=== PATIENT | female | born 1990 | race Caucasian/White ===

== ENCOUNTER 2023-11-12 10:19 | Emergency (ER) | payer MEDICAID, SELFPAY ==
[2023-11-12 10:32] VITALS: BP 154/91; PULSE 90; TEMP 36.8; O2SAT 96; BMI 29.5
[2023-11-12 10:49] LABS: Bilirubin Urine NEGATIVE (NEGATIVE); Blood Urine SMALL (NEGATIVE); Clarity Urine CLEAR (CLEAR); Color Urine LT. YELLOW (YELLOW); Glucose Urine UA NEGATIVE (NEGATIVE); Ketones Urine NEGATIVE (NEGATIVE); Leukocyte Esterase Urine NEGATIVE (NEGATIVE); Nitrite Urine NEGATIVE (NEGATIVE); Protein Urine NEGATIVE (NEG/TRACE); Specific Gravity Urine 1.015 (1.005-1.025); Urobilinogen Urine 0.2 EU/dL (0.2-1.0)
[2023-11-12 10:56] LABS: HCG Qualitative Urine* POSITIVE (NEGATIVE); Internal Control Within Normal Limits
[2023-11-12 11:14] LABS: Bacteria Urine NONE SEEN #/HPF (NONE SEEN); Cast Seen? NONE SEEN #/LPF (NONE SEEN); Crystals Seen? None Seen #/HPF (None Seen); Mucus Urine NONE SEEN (NONE SEEN); RBC Urine 0-2 #/HPF (0-2); Squamous Epithelial Cell Urine RARE #/LPF (NONE/RARE); Urine Culture Indicated NO; WBC Urine 0-2 #/HPF (NONE SEEN)
--- NOTE | 2023-11-12 13:09 | ED_ITS ---
HPI HPI - General Adult General Chief complaint: Urogenital-Female Stated complaint: UTI SYMPTOMS WITH BLEEDING, 6WKS Time Seen by Provider: 11/12/23 11:36 Source: family Mode of arrival: walk-in History of Present Illness HPI narrative: Pt is a 33yo presenting to the ER today with chief complaint of blood is pink- tinged on toilet paper when she wipes herself this morning after urinating. Patient has no vaginal bleeding. Patient is a G6, P4, patient has already had 1 ultrasound of her that shows intrauterine single . Patient is seeing her CREATIVE SERVICES WRITER on Wednesday, 2 days, again for repeat ultrasound. Patient has no vaginal discharge, odors. Patient boyfriend is at bedside. Patient was asked by myself and Winter DASILVA several times and we both have secured that patient has had no vaginal bleeding yesterday or today. No recent trauma, falls, patient is on her second course of antibiotics for UTI. Patient is still taking Macrobid. No other acute complaints at this time. Patient was worried about the color on the tissue paper of reddish/pinkish tent after she wiped herself after urinating. No rectal bleeding, no vaginal bleeding. REVIEW OF SYSTEMS: Unless otherwise stated in this report the patient's positive and negative responses for review of systems for constitutional, eyes, ENT, cardiovascular, respiratory, gastrointestinal, neurological, , mus culoskeletal, and integument systems and related systems to the presenting problem are either stated in the history of present illness or were not pertinent or were negative for the symptoms and/or complaints related to the presenting medical problem vital signs reviewed and patient is not hypoxic. ? General: The patient appears well and in no apparent distress. Patient is resting comfortably on cart. Not toxic, lethargic, or listless. Skin: Warm, dry, no pallor noted. There is no rash noted. Head: Normocephalic, atraumatic Eye: Normal conjunctiva, no drainage, EOMI. PERRL. Ears, Nose, Mouth, and Throat: oral mucosa is moist. Nares patent. Mouth without vesicles. Cardiovascular: Regular Rate and Rhythm, no murmurs, gallops, or rubs Respiratory: Patient is in no distress, no accessory muscle use, lungs are clear to auscultation, no wheezing, rales or rhonchi Back: non-tender, no CVA tenderness bilaterally to percussion. NO CTLS midline or paracervical tenderness to palpation. GI: Soft, no tenderness to palpation, no masses appreciated. No rebound, guarding, or rigidity noted. Musculoskeletal: The patient has full range of motion of all extremities and joints with no difficulty. Patient has no motor, no sensory deficits. Neurological: A&O x4, normal speech, no focal neurological deficits. Psychiatric: Cooperative Musculoskeletal: The patient has full range of motion of all extremities and joints with no difficulty. Patient has no motor, no sensory deficits. Neurological: A&O x4, normal speech, no focal neurological deficits. Psychiatric: Cooperative Related Data Home Medications ?Medication ?Instructions ?Recorded ?Confirmed atenolol 25 mg tablet mg 11/12/23 labetalol 100 mg tablet 100 mg PO DAILY 11/12/23 11/12/23 nitrofurantoin 100 mg PO BID 11/12/23 11/12/23 monohydrate/macrocrystals 100 mg capsule (Macrobid) Allergies Allergy/AdvReac Type Severity Reaction Status Date / Time Penicillins Allergy Intermediate Rash Verified 11/12/23 10:31 Opioid HPI Opioid Management Most Recent Opioid Data: No Data to Display Exam Constitutional Vital Signs, click to edit/add: Last Vital Signs Temp 98.3 F 11/12/23 10:32 Pulse 90 11/12/23 10:32 Resp 18 11/12/23 10:32 BP 154/91 H 11/12/23 10:32 Pulse Ox 96 11/12/23 10:32 Course Vital Signs Vital signs: Vital Signs Temperature 98.3 F 11/12/23 10:32 Pulse Rate 90 11/12/23 10:32 Respiratory Rate 18 11/12/23 10:32 Blood Pressure 154/91 H 11/12/23 10:32 Pulse Oximetry 96 11/12/23 10:32 Temperature 98.3 F 11/12/23 10:32 Pulse Rate 90 11/12/23 10:32 Respiratory Rate 18 11/12/23 10:32 Blood Pressure 154/91 H 11/12/23 10:32 Pulse Oximetry 96 11/12/23 10:32 Medical Decision Making MDM Narrative Medical decision making narrative: Patient's urine shows no acute infection. No acute indication for ultrasound or additional testing. Patient has no pelvic pain or vaginal bleeding. Patient will see her CREATIVE SERVICES WRITER on Wednesday. Patient called her CREATIVE SERVICES WRITER today, office was closed secondary to national malfunction of [employer] and computers. Patient will follow-up with PCP and follow-up with CREATIVE SERVICES WRITER on Wednesday at scheduled ultrasound testing. No questions at discharge. Medical Records Medical records reviewed: Yes I reviewed the patient's medical records Lab Data Lab results reviewed: Yes I reviewed the patient's lab results Labs: Lab Results 11/12/23 Range/Units 10:24 Urine Color Lt. yellow (YELLOW) Urine Clarity Clear (CLEAR) Urine pH 6.0 (5.0-9.0) Ur Specific [place] 1.015 (1.005-1.025) Urine Protein Negative (NEG/TRACE) mg/dL Urine Glucose (UA) Negative (NEGATIVE) mg/dL Urine Ketones Negative (NEGATIVE) mg/dL Urine Occult Blood Small A (NEGATIVE) Urine Nitrite Negative (NEGATIVE) Urine Bilirubin Negative (NEGATIVE) Urine Urobilinogen 0.2 (0.2-1.0) EU/dL Ur Leukocyte Esterase Negative (NEGATIVE) Urine RBC 0-2 (0-2) #/HPF Urine WBC 0-2 A (NONE SEEN) #/HPF Ur Squamous Epith Cells Rare (NONE/RARE) #/LPF Urine Crystals None seen (None Seen) #/HPF Urine Bacteria None seen (NONE SEEN) #/HPF Urine Casts None seen (NONE SEEN) #/LPF Urine Mucus None seen (NONE SEEN) Ur Culture Indicated? No Urine HCG, Qual Positive A (NEGATIVE) Discharge Plan Discharge Stand Alone Forms: Portal Instructions Chief Complaint: Urogenital-Female Clinical Impression: Dysuria Patient Disposition: Home, Self-Care Time of Disposition Decision: 13:09 Condition: Fair Prescriptions / Home Meds: No Action atenolol 25 mg tablet labetalol 100 mg tablet 100 mg PO DAILY nitrofurantoin monohyd/m-cryst [Macrobid] 100 mg capsule 100 mg PO BID Rx Instructions: must administer with a meal/food Print Language: Slovak Instructions: Dysuria (ED) Additional Instructions: Increase fluids See your CREATIVE SERVICES WRITER on Wednesday at scheduled apt Referrals: MIHIR MITTAL [Primary Care Provider] - 1 week Discharge Date/Time: 11/12/23 13:15
== END 2023-11-12 13:15 | disposition home or self-care (01) ==
PROVIDERS: Emergency Provider Emergency Medicine
DX: O26.891 Other specified pregnancy related conditions, first trimester (principal); R30.0 Dysuria; Z3A.01 Less than 8 weeks gestation of pregnancy
CPT/HCPCS: 81001; 84703; 99283

== ENCOUNTER 2025-01-10 10:44 | Emergency (ER) | payer MEDICAID, SELFPAY ==
[2025-01-10] VITALS (11 sets, daily range): BP systolic 136–145; BP diastolic 79–91; PULSE 75–96; TEMP 36.7; O2SAT 98–100; BMI 36.3
--- NOTE | 2025-01-10 11:05 | CT_ITS ---
The [address] [address] Patient Name: LUZ CASAS MRN: [id number] date: 1990 Sex: F Assigned Patient Location: ER Current Patient Location: ER Accession/Order Number: [id number] Exam Date: 01/10/2025 11:32 Report Date: 01/10/2025 11:58 At the request of: FRANCIS DEE MD Procedure: CT head/brain wo con CT BRAIN WITHOUT CONTRAST: CLINICAL HISTORY: Whole body feels numb, recent COVID COMPARISON: None TECHNIQUE: Contiguous axial unenhanced images were obtained through the brain. This CT exam was performed using one or more following dose reduction techniques: Automated exposure control, adjustment of the mA and/or kV according to patient size, or use of iterative reconstruction technique. FINDINGS: The ventricles are normal in size and position. There are no areas of abnormal attenuation. There is no hemorrhage, mass effect or extra-axial collections. There may be borderline low-lying cerebellar tonsils. The imaged paranasal sinuses and mastoid air cells are clear. CT/CT head/brain wo con IMPRESSION: NO ACUTE INTRACRANIAL ABNORMALITY. Impression dictated by: Angella Martin M.D. 01/10/2025 11:58 AM Dictation Location: [place] [address] Electronically authenticated by: [id number] Y Date: 01/10/2025 11:58
--- NOTE | 2025-01-10 11:05 | ECG_ITS ---
[facility] Test Date: 2025-01-10 Pat Name: LUZ CASAS Department: Room: - Gender: Female Tax Agent: : 1990 Requested By: [id number] Order Number: [id number] Reading MD: Von Delvalle Measurements Intervals [place] Rate: 79 P: 45 NM: 172 QRS: 101 QRSD: 86 T: 27 QT: 392 QTc: 427 Interpretive Statements 1100 Sinus rhythm 7100 Abnormal right axis deviation 9130 borderline ECG No previous ECG available for comparison Electronically Signed On 01-10-2025 12:42:27 EDT by Von Delvalle
--- NOTE | 2025-01-10 11:06 | ED.GENADUL1 ---
HPI HPI - General Adult General Chief complaint: Extremity Problem, Nontraumatic Stated complaint: WHOLE BODY NUMBNESS Time Seen by Provider: 01/10/25 10:51 Source: patient Mode of arrival: walk-in History of Present Illness HPI narrative: 34-year-old female presents to the emergency department for her whole body being numb. 6 days ago she was diagnosed with COVID and those symptoms are better now. Her cough is much better. She has been taking 2 Mucinex every 4 hours all throughout the day, not at night, for 6 days. Her face and her arms and her legs are numb. Related Data Home Medications ?Medication ?Instructions ?Recorded ?Confirmed labetalol 100 mg tablet 100 mg PO Q12H 11/12/23 01/10/25 ferrous sulfate 325 mg (65 mg 325 mg PO BID 01/10/25 01/10/25 iron) tablet Allergies Allergy/AdvReac Type Severity Reaction Status Date / Time Penicillins Allergy Intermediate Rash Verified 11/12/23 10:31 Review of Systems ROS Narrative A ten point review of systems is negative except as noted above. PFSH PFSH Social History Little interest or pleasure in doing things: not at all Feeling down, depressed, or hopeless: not at all Exam Narrative Exam Narrative: Nurses note and vital signs reviewed and patient is not hypoxic. General: The patient appears well and in no apparent distress. Patient is resting comfortably on cart. Skin: Warm, dry, no pallor noted. There is no rash noted. Head: Normocephalic, atraumatic Eye: Normal conjunctiva, no drainage Ears, Nose, Mouth, and Throat: oral mucosa is moist. Nares patent. Cardiovascular: Regular Rate and Rhythm Respiratory: Patient is in no distress, no accessory muscle use, lungs are clear to auscultation, no wheezing, rales or rhonchi Back: non-tender GI: Soft and nontender Musculoskeletal: The patient has no evidence of calf tenderness, no pitting edema, symmetrical pulses noted bilaterally Neurological: A&O, normal speech; upper and lower extremity strength 5 out of 5 and symmetric. Psychiatric: Cooperative Constitutional Vital Signs, click to edit/add: Last Vital Signs Temp 98.1 F 01/10/25 10:48 Pulse 85 01/10/25 10:48 Resp 16 01/10/25 10:48 BP 145/84 H 01/10/25 10:48 Pulse Ox 100 01/10/25 10:48 O2 Del Method Room Air 01/10/25 10:48 Course Vital Signs Vital signs: Vital Signs Temperature 98.1 F 01/10/25 10:48 Pulse Rate 85 01/10/25 10:48 Respiratory Rate 16 01/10/25 10:48 Blood Pressure 145/84 H 01/10/25 10:48 Pulse Oximetry 100 01/10/25 10:48 Oxygen Delivery Method Room Air 01/10/25 10:48 Temperature 98.1 F 01/10/25 10:48 Pulse Rate 85 01/10/25 10:48 Respiratory Rate 16 01/10/25 10:48 Blood Pressure 145/84 H 01/10/25 10:48 Pulse Oximetry 100 01/10/25 10:48 Oxygen Delivery Method Room Air 01/10/25 10:48 Medical Decision Making MDM Narrative Medical decision making narrative: Her workup including CT brain is negative. She was given IV fluids as well. Blood work is normal and she is discharged home. I suspect that her symptoms are secondary to the quantity of Mucinex that she has been taking. Treatment diagnosis and follow-up were discussed with the patient and her mother. Differential Diagnosis Differential Diagnosis: Medication side effect, dehydration Lab Data Lab results reviewed: Yes I reviewed the patient's lab results Labs: Lab Results 01/10/25 Range/Units 11:19 WBC 7.9 (4.0-11.0) 10^3/uL RBC 4.10 L (4.20-5.40) 10^6/uL Hgb 11.4 L (12.0-16.0) g/dL Hct 35.1 L (36.0-48.0) % MCV 85.6 (81.0-99.0) fL MCH 27.8 (26.7-34.0) pg MCHC 32.5 (29.9-35.2) g/dL RDW 13.4 (11.0-15.0) % Plt Count 381 (150-450) 10^3/uL MPV 8.8 L (9.5-13.5) fL Neut % (Auto) 70.0 (43.0-75.0) % Lymph % (Auto) 25.4 (20.5-60.0) % [place] % (Auto) 3.2 (1.7-12.0) % Eos % (Auto) 1.0 (0.9-7.0) % Baso % (Auto) 0.1 L (0.2-2.0) % Neut # (Auto) 5.6 (1.4-6.5) 10^3/uL Lymph # (Auto) 2.0 (1.2-3.8) 10^3/uL [place] # (Auto) 0.3 (0.3-0.8) 10^3/uL Eos # (Auto) 0.1 (0.0-0.7) 10^3/uL Baso # (Auto) 0.0 (0.0-0.1) 10^3/uL Abs Immat Gran (auto) 0.02 (0.00-0.03) 10^3/uL Imm/Tot Granulo (auto) 0.3 (0.0-0.5) % Sodium 139 (136-145) mmol/L Potassium 3.8 (3.5-5.1) mmol/L Chloride 106 (98-107) mmol/L Carbon Dioxide 25.8 (21.0-32.0) mmol/L Anion Gap 11.0 BUN 11.0 (7.0-18.0) mg/dL Creatinine 0.67 (0.55-1.02) mg/dL Est GFR ( Amer) >60 (>=60 mL/min/1.73m^2) Est GFR (Non-Af Amer) >60 (>=60 mL/min/1.73m^2) BUN/Creatinine Ratio 16.4 Glucose 119 H (74-106) mg/dL Calcium 9.0 (8.5-10.1) mg/dL Imaging Data CT scan - head: Radiologist's impression: ITS Impressions Head CT 01/10/25 11:05 IMPRESSION: NO ACUTE INTRACRANIAL ABNORMALITY. Impression dictated by: Angella Martin M.D. 01/10/2025 11:58 AM Dictation Location: [place] [address] Electronically authenticated by: [id number] Y Date: 01/10/2025 11:58 ECG Data Attestation: I personally reviewed and interpreted this ECG as follows: (EKG on my interpretation shows sinus rhythm with rate of 79 and no acute change) Discharge Plan Discharge Chief Complaint: Extremity Problem, Nontraumatic Clinical Impression: Paresthesia Patient Disposition: Home, Self-Care Time of Disposition Decision: 12:19 Condition: Good Mode of Transportation: Private Vehicle Prescriptions / Home Meds: No Action labetalol 100 mg tablet 100 mg PO Q12H ferrous sulfate 325 mg (65 mg iron) tablet 325 mg PO BID Print Language: Danish Instructions: Paresthesia (ED), Adverse Drug Reaction (ED) Referrals: MIHIR MITTAL [Primary Care Provider] - 1 week
[2025-01-10] MEDS: 0.9 % SODIUM CHLORIDE 1,000 ML 1000 ML IV (11:26)
[2025-01-10 11:34] LABS: Anion Gap 11.0; Blood Urea Nitrogen 11.0 mg/dL (7.0-18.0); Calcium 9.0 mg/dL (8.5-10.1); Carbon Dioxide 25.8 mmol/L (21.0-32.0); Chloride 106 mmol/L (98-107); Estimated GFR (African America >60 (>=60 mL/min/1.73m^2); Estimated GFR (Non-African Ame >60 (>=60 mL/min/1.73m^2); Glucose 119 mg/dL (74-106); Potassium 3.8 mmol/L (3.5-5.1); Sodium 139 mmol/L (136-145)
[2025-01-10 11:35] LABS: Hematocrit 35.1 % (36.0-48.0); Hemoglobin 11.4 g/dL (12.0-16.0); Immature Granulocytes Abs Auto 0.02 10^3/uL (0.00-0.03); Immature Granulocytes Pct Auto 0.3 % (0.0-0.5); Lymphocytes Absolute Auto 2.0 10^3/uL (1.2-3.8); Mean Corpuscular HGB Conc 32.5 g/dL (29.9-35.2); Mean Corpuscular Hemoglobin 27.8 pg (26.7-34.0); Mean Corpuscular Volume 85.6 fL (81.0-99.0); Platelet Count 381 10^3/uL (150-450); Red Blood Count 4.10 10^6/uL (4.20-5.40); White Blood Count 7.9 10^3/uL (4.0-11.0)
== END 2025-01-10 12:34 | disposition home or self-care (01) ==
PROVIDERS: Emergency Provider Emergency Medicine
DX: R20.2 Paresthesia of skin (principal); Z86.16 Personal history of COVID-19
CPT/HCPCS: 36415; 70450; 80048; 85025; 93005; 99285